=== PATIENT | female | born 1995 | race Caucasian/White ===

== ENCOUNTER 2020-11-28 05:52 | Inpatient (IN) ==
[2020-11-28] MEDS ORDERED: Naloxone 0.4 MG/ML INJ IVP PRN (05:55)
[2020-11-28] MEDS ORDERED: Metoclopramide 10 MG/2 ML VIAL IVP PRN (05:55)
[2020-11-28] MEDS ORDERED: Lidocaine 1% 20 ML MDV INFILT PRN (05:55)
[2020-11-28] MEDS ORDERED: *HR* Nalbuphine 10 MG/ML AMPUL IV PRN (05:55)
[2020-11-28] MEDS ORDERED: Famotidine 20 MG/2 ML VIAL IVP PRN (05:55)
[2020-11-28] MEDS ORDERED: Ondansetron 4 MG/2 ML VIAL IVP PRN (06:00)
[2020-11-28 06:48] LABS: Basophils # 0.1 K/mcL (0.0-0.2); Basophils % 0.5 %; Eosinophils # 0.1 K/mcL (0.0-0.6); Eosinophils % 0.9 %; Hematocrit 34.2 % (35.3-44.9); Hemoglobin 11.7 g/dL (11.5-15.4); Immature Granulocytes % 1.3 % (0-4); Lymphocytes # 1.6 K/mcL (0.6-4.6); Lymphocytes % 15.6 %; Mean Corpuscular HGB Conc 34.2 g/dL (31.6-35.5); Mean Corpuscular Hemoglobin 29.8 pg (28.0-33.3); Mean Platelet Volume 10.2 fL (9.4-12.4); Monocytes # 0.8 K/mcL (0.0-1.3); Monocytes % 7.6 %; Neutrophils # 7.5 K/mcL (1.6-8.9); Platelet Count 236 K/mcL (140-400); Red Blood Count 3.93 M/mcL (3.82-4.97); Segmented Neutrophils % 74.1 %; White Blood Count 10.1 K/mcL (4.3-11.1)
[2020-11-28 07:45] LABS: Adenovirus Not Detected (Not Detect); Bordetella Pertussis Not Detected (Not Detect); Chlamydophila pneumoniae Not Detected (Not Detect); Coronavirus 229E Not Detected (Not Detect); Coronavirus HKU1 Not Detected (Not Detect); Coronavirus NL63 Not Detected (Not Detect); Coronavirus OC43 Not Detected (Not Detect); Human Metapneumovirus Not Detected (Not Detect); Human Rhinovirus/Enterovirus Not Detected (Not Detect); Influenza A Subtype 2009 H1 Not Detected (Not Detect); Influenza B Not Detected (Not Detect); Mycoplasma pneumoniae Not Detected (Not Detect); Parainfluenza Virus 1 Not Detected (Not Detect); Parainfluenza Virus 2 Not Detected (Not Detect); Parainfluenza Virus 3 Not Detected (Not Detect); Parainfluenza Virus 4 Not Detected (Not Detect); Respiratory Syncytial Virus Not Detected (Not Detect); SARS-CoV-2 Not Detected (Not Detect)
[2020-11-28] MEDS ORDERED: Oxytocin 20 units/ LR 1000 mL 20 UNIT/1,000 ML BAG IVC SCH (08:00)
[2020-11-28] MEDS: Ringers Solution, Lactated 1,000 ML IVC SCH ×2 (08:21→11:24)
[2020-11-28] MEDS ORDERED: EPHEDrine 50 MG/ML VIAL IVP PRN (08:41)
[2020-11-28] MEDS ORDERED: Epidural Premix (fent/bupiv) 110 ML EP ONE (08:46)
[2020-11-28] MEDS: Epidural Premix (fent/bupiv) 110 ML EP SCH ×2 (09:17→21:36)
[2020-11-28 09:20] LABS: Alanine Aminotransferase 8 Units/L (7-52); Aspartate Amino Transferase 14 Units/L (13-39); BUN/Creatinine Ratio 15 (6-26); Blood Urea Nitrogen 7 mg/dL (6-20); Lactate Dehydrogenase 137 Units/L (140-271); Uric Acid 2.8 mg/dL (2.3-7.6); eGFR For African Americans > 60 (> 60); eGFR For Non-African Americans > 60 (> 60)
[2020-11-28 09:47] LABS: Amphetamine Screen,Urine Negative ng/mL (Cutoff=1000); Barbiturate Screen,Urine Negative ng/mL (Cutoff=200); Benzodiazepines Screen,Urine Negative ng/mL (Cutoff=200); Cannabinoid Screen,Urine Negative ng/mL (Cutoff = 50); Cocaine Screen,Urine Negative ng/mL (Cutoff= 300); Opiate Screen,Urine Negative ng/mL (Cutoff=300); Phencyclidine Screen,Urine Negative ng/mL (Cutoff=25)
[2020-11-28 11:18] LABS: Creatinine,Urine 94 mg/dL; Protein/Creatinine Ratio,Urine 0.18 mg/mg (0.00-0.20)
[2020-11-29] MEDS ORDERED: Ampicillin 2 GM in 0.9 % Sodium Chloride Mini Bag 100 ML IVPB ONE (03:21)
[2020-11-29] MEDS ORDERED: Clindamycin 900 MG/50 ML 900 MG/50 ML IV.SOLN IVPB ONE (03:22)
[2020-11-29] MEDS ORDERED: Sodium Bicarbonate 50 MEQ/50 ML VIAL ONE (03:23)
[2020-11-29] MEDS ORDERED: Lidocaine/EPI 1:200k 2% PF 20 ML VIAL ONE (03:23)
[2020-11-29] MEDS ORDERED: *HR* FentaNYL (PF) 100 MCG/2 ML VIAL ONE ×2 (03:25→03:56)
[2020-11-29 03:28] LABS: Basophils # 0.1 K/mcL (0.0-0.2); Basophils % 0.2 %; Eosinophils % 0.1 %; Hematocrit 28.7 % (35.3-44.9); Hemoglobin 9.7 g/dL (11.5-15.4); Immature Granulocytes % 0.9 % (0-4); Lymphocytes # 1.2 K/mcL (0.6-4.6); Lymphocytes % 5.2 %; Mean Corpuscular HGB Conc 33.8 g/dL (31.6-35.5); Mean Corpuscular Hemoglobin 30.2 pg (28.0-33.3); Mean Corpuscular Volume 89.4 fL (83.0-100.0); Mean Platelet Volume 9.9 fL (9.4-12.4); Monocytes # 1.4 K/mcL (0.0-1.3); Monocytes % 6.1 %; Neutrophils # 20.7 K/mcL (1.6-8.9); Platelet Count 229 K/mcL (140-400); Red Blood Count 3.21 M/mcL (3.82-4.97); Red Cell Distribution Width 14.1 % (11.5-14.5); Segmented Neutrophils % 87.5 %; White Blood Count 23.6 K/mcL (4.3-11.1)
[2020-11-29] MEDS ORDERED: *HR* Midazolam HCl 2 MG/2 ML VIAL ONE (03:56)
[2020-11-29] MEDS ORDERED: Gentamicin 270 MG in 0.9 % Sodium Chloride 100 ML IVPB SCH (04:00)
[2020-11-29 05:50] LABS: Basophils % 0.2 %; Eosinophils % 0.1 %; Hematocrit 29.7 % (35.3-44.9); Immature Granulocytes % 0.7 % (0-4); Lymphocytes # 1.2 K/mcL (0.6-4.6); Mean Corpuscular HGB Conc 33.7 g/dL (31.6-35.5); Mean Corpuscular Volume 89.2 fL (83.0-100.0); Mean Platelet Volume 9.9 fL (9.4-12.4); Monocytes # 1.2 K/mcL (0.0-1.3); Monocytes % 6.6 %; Platelet Count 169 K/mcL (140-400); Red Blood Count 3.33 M/mcL (3.82-4.97); Red Cell Distribution Width 13.8 % (11.5-14.5); Segmented Neutrophils % 85.4 %; White Blood Count 17.5 K/mcL (4.3-11.1)
[2020-11-29] MEDS ORDERED: Oxytocin 20 units/ LR 1000 mL 20 UNIT/1,000 ML BAG IVC ONE (07:03)
[2020-11-29] MEDS ORDERED: Acetaminophen 325 MG TABLET PO PRN (07:03)
[2020-11-29] MEDS ORDERED: Oxytocin 20 units/ LR 1000 mL 20 UNIT/1,000 ML BAG IVC SCH (07:03)
[2020-11-29] MEDS ORDERED: Measles/Mumps/Rubella Vacc 0.5 ML VIAL SQ PRN (07:03)
[2020-11-29] MEDS ORDERED: Rho Immune Globulin 1,500 UNIT SYRINGE IM PRN (07:03)
[2020-11-29] MEDS ORDERED: Benzocaine/Menthol 56 GM AEROSOL SPRAY TP PRN (07:03)
[2020-11-29] MEDS: Ibuprofen 600 MG TABLET PO PRN ×2 (09:27→16:22)
[2020-11-29] MEDS: Prenatal Vit/FA 1 EACH TABLET PO SCH (09:29)
[2020-11-29] MEDS ORDERED: Methylergonovine 0.2 MG/ML AMPUL IM ONE (12:29)
[2020-11-29] MEDS ORDERED: miSOPROStoL 100 MCG TABLET VG ONE (12:29)
[2020-11-29 13:06] LABS: Basophils % 0.1 %; Eosinophils % 0.1 %; Hematocrit 26.9 % (35.3-44.9); Hemoglobin 9.1 g/dL (11.5-15.4); Immature Granulocytes % 0.6 % (0-4); Lymphocytes # 1.3 K/mcL (0.6-4.6); Lymphocytes % 8.5 %; Mean Corpuscular HGB Conc 33.8 g/dL (31.6-35.5); Mean Corpuscular Hemoglobin 29.6 pg (28.0-33.3); Mean Corpuscular Volume 87.6 fL (83.0-100.0); Mean Platelet Volume 10.5 fL (9.4-12.4); Monocytes % 6.2 %; Neutrophils # 13.3 K/mcL (1.6-8.9); Platelet Count 188 K/mcL (140-400); Red Blood Count 3.07 M/mcL (3.82-4.97); Red Cell Distribution Width 13.9 % (11.5-14.5); Segmented Neutrophils % 84.5 %; White Blood Count 15.7 K/mcL (4.3-11.1)
[2020-11-29] MEDS ORDERED: Lanolin 7 G OINT...G. TP PRN (13:53)
[2020-11-30 05:07] LABS: Basophils % 0.2 %; Eosinophils # 0.2 K/mcL (0.0-0.6); Eosinophils % 1.2 %; Hematocrit 23.7 % (35.3-44.9); Hemoglobin 8.1 g/dL (11.5-15.4); Immature Granulocytes % 0.8 % (0-4); Lymphocytes # 1.4 K/mcL (0.6-4.6); Lymphocytes % 10.4 %; Mean Corpuscular HGB Conc 34.2 g/dL (31.6-35.5); Mean Corpuscular Hemoglobin 30.6 pg (28.0-33.3); Mean Corpuscular Volume 89.4 fL (83.0-100.0); Mean Platelet Volume 9.8 fL (9.4-12.4); Monocytes # 0.8 K/mcL (0.0-1.3); Monocytes % 5.8 %; Neutrophils # 11.2 K/mcL (1.6-8.9); Platelet Count 161 K/mcL (140-400); Red Blood Count 2.65 M/mcL (3.82-4.97); Red Cell Distribution Width 14.4 % (11.5-14.5); Segmented Neutrophils % 81.6 %; White Blood Count 13.7 K/mcL (4.3-11.1)
[2020-11-30] MEDS: Prenatal Vit/FA 1 EACH TABLET PO SCH (07:43)
[2020-11-30] MEDS: Ibuprofen 600 MG TABLET PO PRN (07:43)
[2020-11-30 07:51] VITALS: BP 124/90
== END 2020-11-30 15:35 | disposition home or self-care (01) | DRG 806 ==
LOC: 1NENULAB 05:52 → 1NENUOBS 11-29 08:22
PROVIDERS: ADMIT Obstetrics & Gynecology; ATTEND Obstetrics & Gynecology